=== PATIENT | female | born 1955 | race Caucasian/White ===

== ENCOUNTER 2018-12-12 13:58 | Emergency (ER) | payer BC, MEDICARE ==
[~2018-12-12] VITALS: Ht 160 cm; Wt 45.4 kg
[~2018-12-12 13:58] MED LIST: BUPR100T13 PO; FLUO20CA36 PO; LEVO75TA PO
[2018-12-12] MEDS ORDERED: MEMA10TA PO (14:09)
[2018-12-12] MEDS ORDERED: BUSP10TA3 PO (14:09)
[2018-12-12] MEDS ORDERED: HYDR-3326 PO (14:09)
[2018-12-12] MEDS ORDERED: TOPI25TA49 PO (14:09)
[2018-12-12 14:30] LABS: BASOPHILS % (AUTO) 0.5 % (0.0-2.0); EOSINOPHILS # (AUTO) 0.1 K/uL (0.0-0.7); EOSINOPHILS % (AUTO) 1.3 % (0.0-7.0); HEMATOCRIT 34.4 % (31.2-41.9); HEMOGLOBIN 11.4 g/dL (10.9-14.3); LYMPHOCYTES # (AUTO) 1.1 K/uL (20.0-40.0); MEAN CORPUSCULAR HEMOGLOBIN 29.1 uug (24.7-32.8); MEAN CORPUSCULAR HGB CONC 33 g/dL (32.3-35.6); MEAN CORPUSCULAR VOLUME 87.6 fL (75.5-95.3); MONOCYTES # (AUTO) 0.3 K/uL (2.0-10.0); MONOCYTES % (AUTO) 7.8 % (0.0-11.0); NEUTROPHILS # (AUTO) 2.5 K/uL (1.8-8.9); NEUTROPHILS % (AUTO) 62.4 % (38.5-71.5); PLATELET COUNT (AUTO) 211 K/uL (179-408); RED BLOOD CELL COUNT(AUTO) 3.93 MIL/uL (3.63-4.92); WHITE BLOOD COUNT (AUTO) 4.1 K/uL (3.8-11.8)
[2018-12-12 14:35] LABS: CREATININE 1.1 mg/dL (0.6-1.3); POTASSIUM 4.4 mmol/L (3.5-5.1)
[2018-12-12 14:40] LABS: BILIRUBIN,DIRECT 0.1 mg/dL (0.0-0.2); BILIRUBIN,TOTAL 0.2 mg/dL (0.2-1.0); TOTAL PROTEIN, SERUM 6.7 g/dL (6.4-8.2)
[2018-12-12 15:10] VITALS: BP 123/72
== END 2018-12-12 15:14 | disposition home or self-care (01) ==
LOC: ER 13:58
DX: R55 Syncope and collapse (principal); F32.9 Major depressive disorder, single episode, unspecified; Z88.2 Allergy status to sulfonamides; Z88.8 Allergy status to other drugs, medicaments and biological substances
CPT/HCPCS: 36415; 85025; 93005; A4663

== ENCOUNTER 2020-10-12 13:28 | Emergency (ER) | payer MEDICARE ==
[~2020-10-12] VITALS: Ht 154.9 cm; Wt 37.6 kg
[~2020-10-12 13:28] MED LIST changes: +BUSP10TA3 PO; +HYDR-3326 PO; +MEMA10TA PO; +TOPI25TA49 PO
--- NOTE | 2020-10-12 14:46 | NUR ---
PT WAS EVALUATED BY DR WOMACK. PT WAS D/C'd TO HOME. D/C INSTRUCTIONS GIVEN TO THE PT BY DR WOMACK.
[2020-10-12 14:48] VITALS: BP 128/68
== END 2020-10-12 14:48 | disposition home or self-care (01) ==
LOC: ER 13:28
DX: S60.221A Contusion of right hand, initial encounter (principal); V47.6XXA Car passenger injured in collision with fixed or stationary object in traffic accident, initial encounter; W22.12XA Striking against or struck by front passenger side automobile airbag, initial encounter; Y92.414 Local residential or business street as the place of occurrence of the external cause; Z88.2 Allergy status to sulfonamides
CPT/HCPCS: 73130; A4663